=== PATIENT | female | born 1955 | race Caucasian/White ===

== ENCOUNTER → 2017-05-27 10:40 | Outpatient (CLI) | payer OTHER, SELFPAY ==
[2017-05-27 12:36] LABS: AST(SGOT) 19 U/L (15-37); Alanine Aminotransfer ALT/SGPT 40 U/L (13-56); Albumin, Serum 3.7 g/dL (3.2-5.0); Alkaline Phosphatase 109 U/L (45-117); Anion Gap 8 (5-15); BUN 17 mg/dL (7-18); BUN/Creat Ratio 24.6 RATIO (10-20); CPK Total, Creatine Kinase 46 U/L (26-192); Calcium,Total 9.1 mg/dL (8.5-10.1); Chloride 106 mmol/L (98-107); Cholesterol 137 mg/dL (200); Creatinine, Serum 0.69 mg/dL (0.55-1.02); EST Glomerular Filtration Rate 92 mL/min (>60); Est Glom Filt Rate - Afr Amer 111 mL/min (>60); Globulin 3.8 g/dL (2.2-4.2); Glucose 154 mg/dL (74-106); High Density Lipoprotein 47 mg/dL; Potassium 4.1 mmol/L (3.5-5.1); Protein, Total 7.5 g/dL (6.4-8.2); Sodium Level 139 mmol/L (136-145); Triglycerides 278 mg/dL; Very Low Density Lipoprotein 56 mg/dL (5-40)
[2017-05-27 12:42] LABS: Hemoglobin A1c 8.8 % (4.2-6.3)
[2017-05-27 12:57] LABS: Microalbumin,Random Urine 5.5 mg/L (NO RANGE EST.); Microalbumin:Creatinine Ratio 10.1 mg/g CRE (<30 mg/g CRE)
== END ==
PROVIDERS: Family Provider Family Medicine; PCP Family Medicine; Visit Provider Family Medicine
DX: E11.9 Type 2 diabetes mellitus without complications (principal); E78.5 Hyperlipidemia, unspecified; M79.1 Myalgia; Z12.11 Encounter for screening for malignant neoplasm of colon
CPT/HCPCS: 36415; 80053; 80061; 82043; 82274; 82550; 82570; 83036

== ENCOUNTER → 2017-08-05 14:31 | Outpatient (CLI) | payer OTHER, SELFPAY ==
--- NOTE | 2017-08-05 14:31 | DT_ITS ---
This patient was seen during an EMR downtime July 29, 2017 - August 05, 2017. This patient may have a combination of paper and electronic documentation or all paper documentation. All documentation is viewable within the e-chart portion of [facility] for each patient visit.
[2017-08-05 15:17] LABS: Hematocrit 45.1 % (37-47); Hemoglobin 14.5 g/dl (12.0-15.0); Mean Corp Hgb Conc 32.2 g/gl (32-36); Mean Corpuscular Hgb 30.1 pg (27.0-32.0); Mean Corpuscular Volume 93.6 fL (81-99); Mean Platelet Vol. 9.9 fl (6.2-12.0); Platelet Count 235 K/mm3 (150-450); RBC Distribution Width CV 13.3 % (11.6-14.6); RBC Distribution Width SD 45.6 fl (35.1-43.9); Red Blood Count 4.82 M/mm3 (4.2-5.4)
[2017-08-05 15:19] LABS: Scan Indicated on CBC? Y/N NO
[2017-08-05 15:42] LABS: Anion Gap 10 (5-15); BUN 18 mg/dL (7-18); BUN/Creat Ratio 26.7 RATIO (10-20); Calcium,Total 9.5 mg/dL (8.5-10.1); Chloride 105 mmol/L (98-107); Creatinine, Serum 0.67 mg/dL (0.55-1.02); EST Glomerular Filtration Rate 95 mL/min (>60); Est Glom Filt Rate - Afr Amer 115 mL/min (>60); Glucose 106 mg/dL (74-106); Sodium Level 140 mmol/L (136-145)
== END ==
PROVIDERS: Family Provider Family Medicine; PCP Family Medicine; Visit Provider Family Medicine
DX: Z79.899 Other long term (current) drug therapy (principal)
CPT/HCPCS: 36415; 80048; 85027

== ENCOUNTER → 2017-09-09 08:18 | Outpatient (CLI) | payer OTHER, SELFPAY ==
[2017-09-09 09:32] LABS: Hemoglobin A1c 8.9 % (4.2-6.3)
[2017-09-09 09:34] LABS: Thyroid Stim Hormone (TSH) 1.48 uIU/mL (0.358-3.74)
== END ==
PROVIDERS: Family Provider Family Medicine; PCP Family Medicine; Visit Provider Family Medicine
DX: E11.65 Type 2 diabetes mellitus with hyperglycemia (principal); E11.69 Type 2 diabetes mellitus with other specified complication
CPT/HCPCS: 36415; 83036; 84443

== ENCOUNTER → 2018-01-30 12:13 | Outpatient (CLI) | payer OTHER, SELFPAY ==
[2016-10-09 07:57] VITALS: BMI 31.2
[2018-01-30 13:05] LABS: Hemoglobin A1c 9.4 % (4.2-6.3)
[2018-01-30 13:16] LABS: ALB/GLOB Ratio 0.9 RATIO (0.9-2.4); AST(SGOT) 18 U/L (15-37); Alanine Aminotransfer ALT/SGPT 46 U/L (13-56); Albumin, Serum 3.4 g/dL (3.2-5.0); Alkaline Phosphatase 135 U/L (45-117); Anion Gap 11 (5-15); BUN 13 mg/dL (7-18); BUN/Creat Ratio 15.6 RATIO (10-20); Calcium,Total 8.9 mg/dL (8.5-10.1); Chloride 105 mmol/L (98-107); Creatinine, Serum 0.83 mg/dL (0.55-1.02); EST Glomerular Filtration Rate 74 mL/min (>60); Est Glom Filt Rate - Afr Amer 90 mL/min (>60); Globulin 3.8 g/dL (2.2-4.2); Glucose 233 mg/dL (74-106); Protein, Total 7.2 g/dL (6.4-8.2); Sodium Level 140 mmol/L (136-145)
== END ==
PROVIDERS: Family Provider Family Medicine; PCP Family Medicine; Referring Provider Physician Assistant; Visit Provider Physician Assistant
DX: I10 Essential (primary) hypertension (principal); E11.65 Type 2 diabetes mellitus with hyperglycemia; E11.69 Type 2 diabetes mellitus with other specified complication; E78.5 Hyperlipidemia, unspecified
CPT/HCPCS: 36415; 80053; 83036

== ENCOUNTER → 2018-06-17 | Outpatient (CLI) | payer OTHER, SELFPAY ==
[2016-10-09 07:57] VITALS: BMI 31.2
[2018-06-25 17:49] LABS: HPV HC, High Risk Negative (Negative); HPV Reflexed? YES, CHARGE PATIENT
== END | disposition home or self-care (01) ==
LOC: LABSPEC 14:13
PROVIDERS: Visit Provider Obstetrics & Gynecology
DX: Z12.4 Encounter for screening for malignant neoplasm of cervix (principal)
CPT/HCPCS: 87624; 88175; G0145

== ENCOUNTER → 2018-07-07 | Outpatient (CLI) | payer OTHER, SELFPAY ==
[2016-10-09 07:57] VITALS: BMI 31.2
[2018-07-07 10:59] LABS: Hemoglobin A1c 9.1 % (4.2-6.3)
== END | disposition home or self-care (01) ==
PROVIDERS: Family Provider Family Medicine; PCP Family Medicine; Referring Provider Family Medicine; Visit Provider Family Medicine
DX: E11.65 Type 2 diabetes mellitus with hyperglycemia (principal)
CPT/HCPCS: 36415; 83036

== ENCOUNTER → 2018-08-06 | Outpatient (CLI) | payer OTHER, SELFPAY ==
[2016-10-09 07:57] VITALS: BMI 31.2
--- NOTE | 2018-08-06 10:37 | BI_ITS ---
MAMMOGRAPHY - BILATERAL SCREENING REASON FOR EXAM: Female, 62 years old. Routine annual screening examination. PERTINENT HISTORY: Mother with breast cancer. TECHNIQUE: Digital bilateral breast tracee (3D mammographic acquisition) in the CC and MLO projections. 2-D mediolateral oblique (MLO) and craniocaudad (CC) views of both breasts were obtained. CAD: Full Field Digital Mammography with Computer Added Detection was performed. COMPARISON: Comparison is made with prior study dated January 28, 2016 and January 30, 2012. FINDINGS: Breast Composition: The breasts are heterogeneously dense, which may obscure small masses. There are no dominant masses or suspicious calcifications. No other significant abnormalities are identified. There has been no significant change since the prior study. BI/SCREEN MAMM (CAD) W/TRACEE BILAT IMPRESSION: Stable bilateral screening mammogram. Yearly follow-up mammogram recommended. (A) ASSESSMENT CATEGORY: BIRADS Category 1: Negative. A letter regarding these results will be sent to the patient by the facility within 30 days. Approximately 10% of breast cancers are not detected by mammography. A normal mammogram should not delay biopsy of a clinically suspicious abnormality. [id number] Electronically Signed: Kyle Martins, at 12:29 EDT , Service support ,
== END | disposition home or self-care (01) ==
LOC: OPBI 10:32
PROVIDERS: Family Provider Family Medicine; PCP Family Medicine; Referring Provider Obstetrics & Gynecology; Visit Provider Obstetrics & Gynecology
DX: Z12.31 Encounter for screening mammogram for malignant neoplasm of breast (principal)
CPT/HCPCS: 77063; 77067

== ENCOUNTER → 2018-10-13 | Outpatient (CLI) | payer OTHER, SELFPAY ==
[2018-10-13 11:44] LABS: Hemoglobin A1c 9.2 % (4.2-6.3)
== END | disposition home or self-care (01) ==
PROVIDERS: Family Provider Family Medicine; PCP Family Medicine; Referring Provider Family Medicine; Visit Provider Family Medicine
DX: E11.65 Type 2 diabetes mellitus with hyperglycemia (principal)
CPT/HCPCS: 36415; 83036

== ENCOUNTER → 2019-11-12 09:17 | Outpatient (CLI) | payer OTHER, SELFPAY ==
[2016-10-09 07:57] VITALS: BMI 31.2
[2019-11-12 10:07] LABS: Absolute Lymphocyte Count 1.69 X10^3/uL (0.83-4.51); Absolute Neutrophil Count 3.5 X10^3/uL (2.0-7.7); Basophil# 0.03 X10^3/uL; Basophil% 0.5 % (0-1); Eosinophil# 0.33 X10^3/uL; Eosinophils% 5.7 % (0-5); Hematocrit 43.5 % (37-47); Hemoglobin 13.8 g/dL (12.0-15.0); Lymphocyte # 1.69 X10^3/ul (4.0); Mean Corp Hgb Conc 31.7 g/dL (32-36); Mean Corpuscular Hgb 29.4 pg (27.0-32.0); Mean Corpuscular Volume 92.6 fL (81-99); Mean Platelet Vol. 9.7 fl (6.2-12.0); Monocyte# 0.27 X10^3/uL; Monocyte% 4.6 % (0-10); NRBC Flagged by Analyzer 0 % (0-5); Neutrophil # 3.49 X10^3/uL (2.7-7.7); Neutrophil % 59.9 % (47-70); Platelet Count 247 K/mm3 (150-450); RBC Distribution Width CV 12.5 % (11.6-14.6); RBC Distribution Width SD 43.2 fl (35.1-43.9); White Blood Count 5.8 K/mm3 (4.4-11.0)
[2019-11-12 10:25] LABS: Hemoglobin A1c 9.7 % (3.8-5.6)
[2019-11-12 10:41] LABS: ALB/GLOB Ratio 0.9 RATIO (0.9-2.4); AST(SGOT) 14 U/L (15-37); Alanine Aminotransfer ALT/SGPT 30 U/L (13-56); Albumin, Serum 3.4 g/dL (3.2-5.0); Alkaline Phosphatase 102 U/L (45-117); Anion Gap 9 (5-15); BUN 12 mg/dL (7-18); BUN/Creat Ratio 20.3 RATIO (10-20); Calcium,Total 9.1 mg/dL (8.5-10.1); Chloride 106 mmol/L (98-107); Cholesterol 122 mg/dL (200); Creatinine, Serum 0.59 mg/dL (0.55-1.02); EST Glomerular Filtration Rate 109 mL/min (>60); Est Glom Filt Rate - Afr Amer 132 mL/min (>60); Globulin 3.8 g/dL (2.2-4.2); Glucose 142 mg/dL (74-106); High Density Lipoprotein 44 mg/dL; Potassium 3.8 mmol/L (3.5-5.1); Protein, Total 7.2 g/dL (6.4-8.2); Sodium Level 138 mmol/L (136-145); Triglycerides 226 mg/dL; Very Low Density Lipoprotein 45 mg/dL (5-40)
[2019-11-12 12:42] LABS: Microalbumin,Random Urine 5.6 mg/L (NO RANGE EST.); Microalbumin:Creatinine Ratio 14.8 mg/g CRE (<30 mg/g CRE)
== END ==
PROVIDERS: PCP Family Medicine; Referring Provider Family Medicine; Visit Provider Family Medicine
DX: E11.9 Type 2 diabetes mellitus without complications (principal); Z12.11 Encounter for screening for malignant neoplasm of colon
CPT/HCPCS: 36415; 80053; 80061; 82043; 82274; 82570; 83036; 85025

== ENCOUNTER → 2020-02-24 09:49 | Outpatient (CLI) | payer OTHER, SELFPAY ==
--- NOTE | 2020-02-24 09:52 | US_ITS ---
STUDY: THYROID ULTRASOUND REASON FOR EXAM: Female, 64 years old. NODULE TECHNIQUE: Ultrasound evaluation of the thyroid was performed with real-time and static dejesus-scale imaging. COMPARISON: None. FINDINGS: RIGHT LOBE: The right lobe of the thyroid gland measures 5.1 x 2.0 x 1.6 cm. There is a heterogeneous echotexture. Nodule 1:12 x 10 x 6 mm mixed cystic and solid isoechoic wider than tall smoothly marginated nodule with no echogenic foci (TR 2) in the anterior right lobe consistent with an adenoma. Nodule 2:11 x 10 x 6 mm mixed cystic and solid isoechoic wider than tall smoothly marginated nodule with no echogenic foci (TR 2) the posterior right lobe consistent with an adenoma. LEFT LOBE: The left lobe of the thyroid gland measures 4.8 x 1.7 x 1.4 cm. There is a heterogeneous echotexture. Nodule 3:13 x 10 x 9 mm mixed cystic and solid isoechoic wider than tall smoothly marginated nodule with no echogenic foci (TR 2) in the mid left lobe consistent with an adenoma. Nodule 4:7 x 4 x 6 mm solid hypoechoic wider than tall smoothly marginated nodule with no echogenic foci (TR 4) in the mid left lobe consistent with an adenoma. ISTHMUS: The isthmus measures 4 mm thick. Nodule 5:18 x 22 x 9 mm solid hypoechoic wider than tall smoothly marginated nodule with no echogenic foci (TR 4)/ultrasound-guided biopsy is recommended.. The regional lymph nodes are normal. US/Thyroid IMPRESSION: Multinodular thyroid gland with a 22 mm dominant nodule the isthmus for which ultrasound-guided biopsy is recommended. Electronically Signed: Kilo Benavides MD at 15:04 EST Tel , Service support ,
--- NOTE | 2020-02-24 09:52 | BI_ITS ---
MAMMOGRAPHY - BILATERAL SCREENING REASON FOR EXAM: Female, 64 years old. Routine annual screening examination. PERTINENT HISTORY: FAM HX OF MOTHER @ AGE 64 AGAIN @ AGE 80 - NO PREV SURG''S TECHNIQUE: Digital bilateral breast tracee (3D mammographic acquisition) in the CC and MLO projections. 2-D mediolateral oblique (MLO) and craniocaudad (CC) views of both breasts were obtained. CAD: Full Field Digital Mammography with Computer Added Detection was performed. COMPARISON: 08/06/2018 01/28/2016 FINDINGS: Breast Composition: There are scattered areas of fibroglandular density. There are no dominant masses or suspicious calcifications. No other significant abnormalities are identified. BI/SCREEN MAMM (CAD) W/TRACEE BILAT IMPRESSION: Stable bilateral screening mammogram. Yearly follow-up mammogram recommended. (A) ASSESSMENT CATEGORY: BIRADS Category 2: Benign. A letter regarding these results will be sent to the patient by the facility within 30 days. Approximately 10% of breast cancers are not detected by mammography. A normal mammogram should not delay biopsy of a clinically suspicious abnormality. [id number] Electronically Signed: Beto Snyder, at 16:31 EST Tel , Service support ,
--- NOTE | 2020-02-24 10:01 | BD_ITS ---
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 COMPARISON: Comparison is made with prior study dated 01/30/2012. FINDINGS: Lumbar Spine (L1-L4): g/cm2 (1.095) / T-score (-0.6) / Z-score (0.9) Findings are suggestive of normal bone density with a low fracture risk. Left Femur Total: g/cm2 (0.826) / T-score (-1.4) / Z-score (-0.3) Left Femoral Neck: g/cm2 (0.829) / T-score (-1.5) / Z-score (-0.1) Right Femur Total: g/cm2 (0.815) / T-score (-1.5) / Z-score (-0.4) Right Femoral Neck: g/cm2 (0.761) / T-score (-2.0) / Z-score (-0.6) The T-Scores on the most recent prior examination were: Lumbar Spine (L1-L4): There has been worsening of bone density since the previous examination. Left Femur Total: which represents a worsening of 14.9%. Right Femur Total: which represents a worsening of 70%. BD/Dexa Bone Density Study IMPRESSION: The patient is considered osteopenic as outlined below according to World Jose Organization (WHO) criteria with a moderate fracture risk. There has been worsening of bone density since the previous examination. Reference Information: The T-score is the number of standard deviations above or below the standard which is normal for young adults at their peak bone mineral density. The World Health Organization (WHO) interprets the T-scores as follows: Above -1 Normal bone density Between -1 and -2.5 Osteopenia Equal to / or below -2.5 Osteoporosis As a practical clinical guideline, osteopenia may be graded as follows: Mild -1 through -1.5 Moderate -1.6 through -2.0 Severe -2.1 through -2.4 The Z-score is the number of standard deviations above or below age-matched controls. A Z-score of less than -1.5 would be considered abnormal. References: 1. NIH Osteoporosis and Related Bone Diseases www osteo.org 2. International Society for Clinical Densitometry www iscd.org 3. National Osteoporosis Foundation www nof.org Electronically Signed: Kyle Martins, at 10:08 EST , Service support ,
== END ==
PROVIDERS: PCP Family Medicine; Referring Provider Family Medicine; Visit Provider Family Medicine
DX: Z12.31 Encounter for screening mammogram for malignant neoplasm of breast (principal); E04.1 Nontoxic single thyroid nodule; M85.89 Other specified disorders of bone density and structure, multiple sites
CPT/HCPCS: 76536; 77063; 77067; 77080

== ENCOUNTER → 2020-03-17 | Outpatient (CLI) | payer OTHER, SELFPAY ==
--- NOTE | 2020-03-17 07:30 | ASPS_PTH ---
PATIENT: GLORY RAMESH LOC: [facility] U#:[id number] AGE/SX: 64/F ROOM: RE03/17/[address]: Dr. Kevin Pickard MD : [id number] BED: DIS: 03/17/2020 SPEC #: [id number] RECD: 03/17/20 15:05 STATUS: GRETEL RESohail #: [id number] ELAN: 03/17/20 07:[address]: Kevin Pickard DEPT: CYTOLOGY RECD BY: Yuli Treadwell ENTERED: 03/18/20 07:09 SP TYPE: ASPIRATION OTHR DR: Dr. Gabriel Kamara MD Tissues: A - Thyroid gland, NOS B - Thyroid isthmus Procedures: Special Stain Group II Cytology Other HEADER OPERATION: Ultrasound-guided fine needle aspiration left thyroid and isthmus PRE-OP DIAGNOSIS: Multiple thyroid nodules TISSUE SUBMITTED: A - Left thyroid nodule FNA slides x6, B - Isthmus FNA slides x6 DIAGNOSIS CYTOLOGY A. Fine needle aspiration, left thyroid nodule (smears): Adequate for evaluation. Negative, consistent with benign follicular nodule. B. Fine needle aspiration, thyroid isthmus nodule (smears): Adequate for evaluation. Negative, consistent with follicular nodule with cystic change. AM:kristie 03/18/2020 CYTOLOGY STUDY Slides are reviewed. CYTOLOGY GROSS A - Received are six smears labeled with the patient's name and designated per the requisition as left thyroid. Submitted for staining. B - Received are six smears labeled with the patient's name and designated per the requisition as isthmus. Submitted for staining. / kristie 03/17/20 TC:5 CPT: 91138 x2
== END | disposition home or self-care (01) ==
LOC: LABSPEC 15:11
PROVIDERS: PCP Family Medicine; Referring Provider Surgery; Visit Provider Surgery
DX: E04.2 Nontoxic multinodular goiter (principal)
CPT/HCPCS: 88161; 88313

== ENCOUNTER → 2020-03-24 08:53 | Outpatient (CLI) | payer OTHER, SELFPAY ==
[2020-03-28 10:09] LABS: HPV APTIMA, High Risk Negative (Negative)
[2020-03-28 10:10] LABS: HPV Reflexed? YES, CHARGE PATIENT
== END ==
PROVIDERS: PCP Family Medicine; Visit Provider Student in an Organized Health Care Education/Training Program
DX: Z12.4 Encounter for screening for malignant neoplasm of cervix (principal)
CPT/HCPCS: 87624; 88175; G0145

== ENCOUNTER → 2020-03-24 08:57 | Outpatient (CLI) | payer OTHER, SELFPAY ==
[2016-10-09 07:57] VITALS: BMI 31.2
[2020-03-08 13:53] VITALS: BMI 27.3
[2020-03-24 10:17] LABS: Absolute Lymphocyte Count 1.63 X10^3/uL (0.83-4.51); Absolute Neutrophil Count 3.8 X10^3/uL (2.0-7.7); Basophil# 0.04 X10^3/uL; Basophil% 0.7 % (0-1); Eosinophil# 0.17 X10^3/uL; Eosinophils% 2.8 % (0-5); Hematocrit 45.4 % (37-47); Hemoglobin 14.6 g/dL (12.0-15.0); Lymphocyte # 1.63 X10^3/ul (4.0); Mean Corp Hgb Conc 32.2 g/dL (32-36); Mean Corpuscular Hgb 30.2 pg (27.0-32.0); Mean Corpuscular Volume 93.8 fL (81-99); Mean Platelet Vol. 10.1 fl (6.2-12.0); Monocyte# 0.35 X10^3/uL; Monocyte% 5.8 % (0-10); NRBC Flagged by Analyzer 0 % (0-5); Neutrophil # 3.83 X10^3/uL (2.7-7.7); Neutrophil % 63.4 % (47-70); Platelet Count 241 K/mm3 (150-450); RBC Distribution Width CV 12.5 % (11.6-14.6); RBC Distribution Width SD 43.6 fl (35.1-43.9); Red Blood Count 4.84 M/mm3 (4.2-5.4)
[2020-03-24 10:51] LABS: Vitamin D,25 Hydroxy 41.8 ng/mL
[2020-03-24 11:06] LABS: Microalbumin:Creatinine Ratio 19.2 mg/g CRE (<30 mg/g CRE)
[2020-03-24 11:14] LABS: ALB/GLOB Ratio 0.9 RATIO (0.9-2.4); AST(SGOT) 10 U/L (15-37); Alanine Aminotransfer ALT/SGPT 29 U/L (13-56); Albumin, Serum 3.5 g/dL (3.2-5.0); Alkaline Phosphatase 104 U/L (45-117); Anion Gap 9 (5-15); BUN 21 mg/dL (7-18); BUN/Creat Ratio 29.1 RATIO (10-20); Chloride 107 mmol/L (98-107); Cholesterol 137 mg/dL (200); Creatinine, Serum 0.72 mg/dL (0.55-1.02); EST Glomerular Filtration Rate 87 mL/min (>60); Est Glom Filt Rate - Afr Amer 105 mL/min (>60); Glucose 212 mg/dL (74-106); High Density Lipoprotein 54 mg/dL; Potassium 3.5 mmol/L (3.5-5.1); Protein, Total 7.5 g/dL (6.4-8.2); Sodium Level 139 mmol/L (136-145); Thyroid Stim Hormone (TSH) 0.71 uIU/mL (0.358-3.74); Triglycerides 171 mg/dL; Very Low Density Lipoprotein 34 mg/dL (5-40)
== END ==
PROVIDERS: PCP Family Medicine; Referring Provider Family Medicine; Visit Provider Family Medicine
DX: E04.1 Nontoxic single thyroid nodule (principal); E11.9 Type 2 diabetes mellitus without complications; M85.89 Other specified disorders of bone density and structure, multiple sites
CPT/HCPCS: 36415; 80053; 80061; 82043; 82306; 82570; 83036; 84443; 85025

== ENCOUNTER → 2020-11-10 09:13 | Outpatient (CLI) | payer OTHER, SELFPAY | PROVIDERS: PCP Family Medicine; Referring Provider Family Medicine; Visit Provider Family Medicine | DX: E11.9 Type 2 diabetes mellitus without complications (principal); I10 Essential (primary) hypertension | CPT/HCPCS: 36415; 83036 ==

== ENCOUNTER 2021-05-15 10:47 | Outpatient (CLI) | payer OTHER, SELFPAY ==
[2021-05-15 12:12] LABS: Hemoglobin A1c 6.7 % (3.8-5.6)
== END 2021-05-15 23:59 | disposition home or self-care (01) ==
LOC: MTLAB 10:49
PROVIDERS: PCP Family Medicine; Referring Provider Family Medicine; Visit Provider Family Medicine
DX: E11.9 Type 2 diabetes mellitus without complications (principal)
CPT/HCPCS: 36415; 83036

== ENCOUNTER → 2021-06-26 | Outpatient (CLI) | payer OTHER, SELFPAY ==
--- NOTE | 2021-06-26 12:09 | BI_ITS ---
MAMMOGRAPHY - BILATERAL SCREENING REASON FOR EXAM: Female, 65 years old. Routine annual screening examination. PERTINENT HISTORY: Mother with breast cancer. TECHNIQUE: Digital bilateral breast tracee (3D mammographic acquisition) in the CC and MLO projections. 2-D mediolateral oblique (MLO) and craniocaudad (CC) views of both breasts were obtained. CAD: Full Field Digital Mammography with Computer Added Detection was performed. COMPARISON: Comparison is made with prior study dated 02/24/2020 and 08/06/2018. FINDINGS: Breast Composition: The breasts are heterogeneously dense, which may obscure small masses. There are no dominant masses or suspicious calcifications. No other significant abnormalities are identified. There has been no significant change since the prior study. BI/SCRN MAMM (CAD)W/TRACEE BILAT IMPRESSION: Stable bilateral screening mammogram. Yearly follow-up mammogram recommended. (A) ASSESSMENT CATEGORY: BIRADS Category 1: Negative. A letter regarding these results will be sent to the patient by the facility within 30 days. Approximately 10% of breast cancers are not detected by mammography. A normal mammogram should not delay biopsy of a clinically suspicious abnormality. [id number] Electronically Signed: Kyle Martins MD at 12:56 EDT ,
--- NOTE | 2021-06-26 12:37 | US_ITS ---
STUDY: THYROID ULTRASOUND REASON FOR EXAM: Female, 65 years old. compare 2020 thyroid nodules TECHNIQUE: Ultrasound evaluation of the thyroid was performed with real-time and static dejesus-scale imaging. COMPARISON: 03/17/2020 FINDINGS: RIGHT LOBE: The right lobe of the thyroid gland measures 5.2 x 2 x 2.1 cm. There is a heterogeneous echotexture. Stable numerous small nodules throughout the right thyroid lobe, cystic nodule measuring 11 x 9 x 8 mm complex nodule measuring 11 x 11 x 10 mm. LEFT LOBE: The left lobe of the thyroid gland measures 4.2 x 1.6 x 1.6 cm. There is a heterogeneous echotexture. Numerous nodules, largest complex nodule measuring 11 x 10 x 10 mm and largest cystic nodule measuring 8 x 6 x 4 mm. ISTHMUS: The isthmus measures 8 mm. The regional lymph nodes are normal. Heterogeneous/complex nodule in the isthmus measuring 1.8 x 1.5 x 0.7 cm US/Thyroid IMPRESSION: Stable multinodular goiter with a diffuse heterogeneous appearance Electronically Signed: Osvaldo Jay DO at 5:48 EDT ,
== END | disposition home or self-care (01) ==
LOC: OPBI 12:06
PROVIDERS: PCP Family Medicine; Referring Provider Family Medicine; Visit Provider Family Medicine
DX: Z12.31 Encounter for screening mammogram for malignant neoplasm of breast (principal); E04.1 Nontoxic single thyroid nodule
CPT/HCPCS: 76536; 77063; 77067

== ENCOUNTER → 2021-10-25 | Outpatient (CLI) | payer OTHER, SELFPAY ==
[2021-10-25 10:51] LABS: Microalbumin,Random Urine 5.4 mg/L (NO RANGE EST.); Microalbumin:Creatinine Ratio 11.3 mg/g CRE (<30 mg/g CRE)
[2021-10-25 10:55] LABS: Vitamin D,25 Hydroxy 44.6 ng/mL
[2021-10-25 11:07] LABS: ALB/GLOB Ratio 0.9 RATIO (0.9-2.4); AST(SGOT) 16 U/L (15-37); Alanine Aminotransfer ALT/SGPT 33 U/L (13-56); Albumin, Serum 3.4 g/dL (3.2-5.0); Alkaline Phosphatase 101 U/L (45-117); Anion Gap 8 (5-15); BUN 10 mg/dL (7-18); BUN/Creat Ratio 12.7 RATIO (10-20); Calcium,Total 9.3 mg/dL (8.5-10.1); Chloride 106 mmol/L (98-107); Cholesterol 114 mg/dL (200); Creatinine, Serum 0.78 mg/dL (0.55-1.02); EST Glomerular Filtration Rate 78 mL/min (>60); Est Glom Filt Rate - Afr Amer 95 mL/min (>60); Globulin 3.8 g/dL (2.2-4.2); Glucose 178 mg/dL (74-106); High Density Lipoprotein 61 mg/dL; Potassium 3.9 mmol/L (3.5-5.1); Protein, Total 7.2 g/dL (6.4-8.2); Sodium Level 138 mmol/L (136-145); Thyroid Stim Hormone (TSH) 0.56 uIU/mL (0.358-3.74); Triglycerides 158 mg/dL; Very Low Density Lipoprotein 32 mg/dL (5-40)
== END | disposition home or self-care (01) ==
LOC: LAB 10:02
PROVIDERS: PCP Family Medicine; Visit Provider Nurse Practitioner Family
DX: E11.9 Type 2 diabetes mellitus without complications (principal); I10 Essential (primary) hypertension
CPT/HCPCS: 36415; 80053; 80061; 82043; 82306; 82570; 84443

== ENCOUNTER → 2022-07-20 | Outpatient (CLI) | payer OTHER, SELFPAY ==
[2022-07-20 10:33] LABS: Hemoglobin A1c 7.8 % (3.8-5.6)
== END | disposition home or self-care (01) ==
PROVIDERS: PCP Family Medicine; Referring Provider Nurse Practitioner Family; Visit Provider Nurse Practitioner Family
DX: E11.9 Type 2 diabetes mellitus without complications (principal)
CPT/HCPCS: 36415; 83036

== ENCOUNTER → 2022-09-05 | Outpatient (CLI) | payer OTHER, SELFPAY ==
--- NOTE | 2022-09-05 08:45 | BI_ITS ---
MAMMOGRAPHY - BILATERAL SCREENING REASON FOR EXAM: Female, 66 years old. Routine annual screening examination. PERTINENT HISTORY: Mother with breast cancer. TECHNIQUE: Digital bilateral breast tracee (3D mammographic acquisition) in the CC and MLO projections. 2-D mediolateral oblique (MLO) and craniocaudad (CC) views of both breasts were obtained. CAD: Full Field Digital Mammography with Computer Added Detection was performed. COMPARISON: Comparison is made with prior study June 26, 2021 and February 24, 2020 FINDINGS: Breast Composition: The breasts are heterogeneously dense, which may obscure small masses. There are no dominant masses or suspicious calcifications. No other significant abnormalities are identified. There has been no significant change since the prior study. BI/SCRN MAMM (CAD)W/TRACEE BILAT IMPRESSION: Stable bilateral screening mammogram. Yearly follow-up mammogram recommended. (A) ASSESSMENT CATEGORY: BIRADS Category 1: Negative. A letter regarding these results will be sent to the patient by the facility within 30 days. Approximately 10% of breast cancers are not detected by mammography. A normal mammogram should not delay biopsy of a clinically suspicious abnormality. [id number] Electronically Signed: Kyle Martins MD at 9:51 EDT ,
--- NOTE | 2022-09-05 08:55 | BD_ITS ---
STUDY: DUAL ENERGY X-RAY ABSORPTIOMETRY / DXA REASON FOR EXAM: Female, 66 years old. M85.89 TECHNIQUE: Bone Mineral Density (BMD) measurements of lumbar spine and bilateral hips were obtained. COMPARISON: Comparison is made with prior study dated February 24, 2020. FINDINGS: Lumbar Spine (L1-L4): g/cm2 (0.870) / T-score (-1.3) / Z-score (0.4) Findings are suggestive of osteopenia with a low fracture risk. Left Femur Total: g/cm2 (0.710) / T-score (-1.9) / Z-score (-0.6) Left Femoral Neck: g/cm2 (0.608) / T-score (-2.2) / Z-score (-0.6) Right Femur Total: g/cm2 (0.720) / T-score (-1.8) / Z-score (-0.6) Right Femoral Neck: g/cm2 (0.630) / T-score (-2.0) / Z-score (-0.4) The T-Scores on the most recent prior examination were: Lumbar Spine (L1-L4): There has been worsening of bone density since the previous examination. Left Femur Total: which represents a worsening of 7.2%. Right Femur Total: which represents a worsening of 4.5%. BD/Dexa Bone Density Study IMPRESSION: The patient is considered osteopenic as outlined below according to World [place] Organization (WHO) criteria with a high fracture risk. There has been worsening of bone density since the previous examination. Reference Information: The T-score is the number of standard deviations above or below the standard which is normal for young adults at their peak bone mineral density. The World Health Organization (WHO) interprets the T-scores as follows: Above -1 Normal bone density Between -1 and -2.5 Osteopenia Equal to / or below -2.5 Osteoporosis As a practical clinical guideline, osteopenia may be graded as follows: Mild -1 through -1.5 Moderate -1.6 through -2.0 Severe -2.1 through -2.4 The Z-score is the number of standard deviations above or below age-matched controls. A Z-score of less than -1.5 would be considered abnormal. References: 1. NIH Osteoporosis and Related Bone Diseases www osteo.org 2. International Society for Clinical Densitometry www iscd.org 3. National Osteoporosis Foundation www nof.org Electronically Signed: Kyle Martins MD at 15:26 EDT ,
== END | disposition home or self-care (01) ==
LOC: OPBD 08:43
PROVIDERS: PCP Family Medicine; Referring Provider Family Medicine; Visit Provider Family Medicine
DX: Z12.31 Encounter for screening mammogram for malignant neoplasm of breast (principal); M85.89 Other specified disorders of bone density and structure, multiple sites; Z80.3 Family history of malignant neoplasm of breast
CPT/HCPCS: 77063; 77067; 77080

== ENCOUNTER → 2022-09-27 | Outpatient (CLI) | payer OTHER, SELFPAY ==
[2022-09-27 10:29] LABS: Microalbumin,Random Urine < 5.0 mg/L (NO RANGE EST.)
[2022-09-27 10:56] LABS: Thyroid Stim Hormone (TSH) 0.72 uIU/mL (0.358-3.74)
[2022-09-28 04:07] LABS: Thyroid Peroxidase AB < 9 IU/mL (0-34)
== END | disposition home or self-care (01) ==
LOC: LAB 09:30
PROVIDERS: PCP Family Medicine; Referring Provider Internal Medicine Endocrinology, Diabetes & Metabolism; Visit Provider Internal Medicine Endocrinology, Diabetes & Metabolism
DX: E11.9 Type 2 diabetes mellitus without complications (principal); I10 Essential (primary) hypertension; E04.2 Nontoxic multinodular goiter; E78.2 Mixed hyperlipidemia; E55.9 Vitamin D deficiency, unspecified
CPT/HCPCS: 36415; 82043; 82306; 82570; 84443; 86376

== ENCOUNTER → 2023-09-02 | Outpatient (CLI) | payer OTHER, SELFPAY ==
[2023-09-02 12:48] LABS: Vitamin D,25 Hydroxy 46.6 ng/mL
[2023-09-02 12:59] LABS: ALB/GLOB Ratio 0.9 RATIO (0.9-2.4); AST(SGOT) 14 U/L (15-37); Alanine Aminotransfer ALT/SGPT 16 U/L (13-56); Albumin, Serum 3.4 g/dL (3.2-5.0); Alkaline Phosphatase 110 U/L (45-117); Anion Gap 9 (5-15); BUN 15 mg/dL (7-18); BUN/Creat Ratio 23.1 RATIO (10-20); Calcium,Total 9.2 mg/dL (8.5-10.1); Chloride 106 mmol/L (98-107); Cholesterol 86 mg/dL (200); Creatinine, Serum 0.65 mg/dL (0.55-1.02); EST Glomerular Filtration Rate 97 mL/min (>60); Est Glom Filt Rate - Afr Amer 117 mL/min (>60); Globulin 3.9 g/dL (2.2-4.2); Glucose 189 mg/dL (74-106); High Density Lipoprotein 46 mg/dL; Potassium 3.8 mmol/L (3.5-5.1); Protein, Total 7.3 g/dL (6.4-8.2); Sodium Level 137 mmol/L (136-145); Thyroid Stim Hormone (TSH) 0.42 uIU/mL (0.358-3.74); Triglycerides 141 mg/dL; Very Low Density Lipoprotein 28 mg/dL (5-40)
[2023-09-02 13:09] LABS: Microalbumin,Random Urine < 5.0 mg/L (NO RANGE EST.)
[2023-09-02 20:06] LABS: Absolute Lymphocyte Count 1.43 X10^3/uL (0.83-4.51); Absolute Neutrophil Count 5.5 X10^3/uL (2.0-7.7); Basophil# 0.03 X10^3/uL; Basophil% 0.4 % (0-1); Eosinophils% 1.4 % (0-5); Hematocrit 42.5 % (37-47); Hemoglobin 13.2 g/dL (12.0-15.0); Lymphocyte # 1.43 X10^3/ul (0.83-4.51); Lymphocyte % 19.4 % (19-41); Mean Corp Hgb Conc 31.1 g/dL (32-36); Mean Corpuscular Hgb 28.9 pg (27.0-32.0); Mean Platelet Vol. 10.3 fl (6.2-12.0); Monocyte# 0.33 X10^3/uL; Monocyte% 4.5 % (0-10); NRBC Flagged by Analyzer 0 % (0-5); Neutrophil # 5.45 X10^3/uL (2.7-7.7); Platelet Count 241 K/mm3 (150-450); RBC Distribution Width CV 13.2 % (11.6-14.6); Red Blood Count 4.57 M/mm3 (4.2-5.4); White Blood Count 7.4 K/mm3 (4.4-11.0)
== END | disposition home or self-care (01) ==
PROVIDERS: PCP Family Medicine; Referring Provider Internal Medicine Endocrinology, Diabetes & Metabolism; Visit Provider Internal Medicine Endocrinology, Diabetes & Metabolism
DX: E04.1 Nontoxic single thyroid nodule (principal); E11.9 Type 2 diabetes mellitus without complications
CPT/HCPCS: 36415; 80053; 80061; 82043; 82306; 82570; 84443; 85025

== ENCOUNTER → 2023-10-10 | Outpatient (CLI) | payer OTHER, SELFPAY ==
--- NOTE | 2023-10-10 10:24 | RAD_ITS ---
STUDY: X-RAY - LUMBAR SPINE REASON FOR EXAM: Female, 67 years old. Back pain. TECHNIQUE: 4 view(s) of the lumbar spine were obtained. COMPARISON: November 17, 2010 FINDINGS: Stable osteopenia. Normal lumbar lordosis. No scoliosis. 9 mm of anterolisthesis of L3 on L4 which is increased since the prior study. Diffuse moderate lower thoracic and lumbosacral facet sclerosis. Intervertebral disc space narrowing at L1-2, L2-3, L3-4, L4-5 and L5-S1. Most marked intervertebral disc space narrowing osteophytes at L3-4 and L4-5, all progressed since the prior study. Incidentally noted is moderate to severe arthrosis of both hips. Phleboliths and minimal vascular calcification. RAD/L/S Spine Min 4 Views IMPRESSION: Osteopenia, moderate lower thoracic and moderate to marked lower lumbosacral spondylosis. Moderate to marked arthrosis of both hips. Electronically Signed: Demario Iyer MD at 11:06 EDT ,
--- NOTE | 2023-10-10 10:24 | RAD_ITS ---
INDICATION: Pain. EXAMINATION/TECHNIQUE: X-RAY - XR Hips Bilateral with Pelvis when performed; 6 Views COMPARISON: No relevant prior comparison study available. FINDINGS: PELVIC BONES: No displaced fracture, destructive or sclerotic lesions. Note that overlapping bowel shadows may however obscure fine detail. Sacroiliac joints are unremarkable. No widening of the pubic symphysis. HIPS: There is severe degenerative arthrosis of the hip joints bilaterally with [id number], marginal osteophyte formation, and subchondral sclerosis/cyst formation. No displaced fracture seen. SOFT TISSUES: There are multiple calcified phleboliths in the pelvis. No soft tissue swelling or gas. RAD/Hips B/L min 2 views w/ Pelvis IMPRESSION: Severe degenerative arthrosis of the hip joints bilaterally. No evidence of displaced pelvic or hip fracture. Electronically Signed: Andres Venegas MD at 10:57 EDT ,
== END | disposition home or self-care (01) ==
PROVIDERS: PCP Family Medicine; Referring Provider Physician Assistant Surgical; Visit Provider Physician Assistant Surgical
DX: M25.551 Pain in right hip (principal); M25.552 Pain in left hip; S39.012A Strain of muscle, fascia and tendon of lower back, initial encounter
CPT/HCPCS: 72110; 73521

== ENCOUNTER → 2023-12-03 | Outpatient (CLI) | payer OTHER, SELFPAY ==
[2023-12-03 15:57] LABS: Hemoglobin A1c 7.1 % (3.8-5.6)
== END | disposition home or self-care (01) ==
LOC: MTLAB 12:45
PROVIDERS: PCP Family Medicine; Referring Provider Emergency Medicine; Visit Provider Emergency Medicine
DX: Z01.812 Encounter for preprocedural laboratory examination (principal); E11.9 Type 2 diabetes mellitus without complications
CPT/HCPCS: 36415; 83036

== ENCOUNTER 2024-03-09 12:30 | Outpatient (RCR) | payer OTHER, SELFPAY ==
--- NOTE | 2024-01-27 15:56 | HP.PTEVAL_ITS ---
Patient's Visit Information Visit Information Visit Information: GLORY RAMESH is a 68 year old F referred to Physical Therapy by Dr. Gabriel Kamara MD with a diagnosis of R hip OA s/p ADI anterior approach 12/27/23. Date of Evaluation: 01/27/24 Physical Therapist: PERI JacobsT, OCS, CSCS Visit Plan Frequency: 2x /Week Duration: 4-6 Weeks Plan: 2x/week for 4-6 weeks for IE: HEP reviewed seated adn supine ex and need to move R LE and use it and take care of skin under fat flap in R anterior hip, also on anterior approach precautions exitting bed and how to work on getting hands down to foot for socks and ADLs In clinic: standing Hip strength to HEP with pics, giat and stair training with minimal to no AD, work on confidence with R LE movement, scar massage as needed adn R quad stretching to HEP, ice as needed. Subjective Subjective: R ADI 4 weeks ago early December. Needs L one done. L meniscal repair. Had R hip pain groin. Had home health for 3 weeks and doing HEP of standing movements and lying exercises. Pain over weekend is more of an ache and 2/10. Hurts more if does too much. Sleep is interrupted every 3 hours due to hip adn sleeping on back. Using cane to get around, walker if weather is bad. N AD prior to surgery but hobbled. 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 Basic ADLs: dresses all except socks which she needs help due to limitations. Bathroom I, shower with help into stall and then sits. 2-3 inch step Doing dishes and cooking but limiting mobility Hobbies: sewing: hard with R foot on pedal. Not driving yet. No falls Couple steps with two rails to enter and nno problem with R Pain R hip lateral: Pain Intensity (Out of 10): 0 Pain Intensity Range: 0 and 2 Objective Objective: R Incision is anterior and healed proximally but distally under skin flap is still slightly open but no signs of redness heat or infection. Educated her to keep incision clean and dry even under flap. Pt is very hesitant to use R LE, slow to move it, it is not overly painful but she is hesitant and has been told not to cross legs, bend forward and use pillow between knee when rolling despite the anterior incision, i reeducate her today on ext rotation abd extension precaution and encourage her to move the hip otherwise. Walking with cane in L UE with R trendelenberg slow with short L step but mod I. Can walk without AD slow and more pronounced trendelenberg but I. FGA taken without cane today. Trasnfers chair and bed I but slow to move R LE. SLR able but doesn't have the confidence to do it until shown. Full knee and ankle ROM R, hip ROM hesitant but PROM is 90 flexion, 20 abduction, 0 ext. reflexes 2/3 patella adn achilles Sensation LE WNL to gross light touch B LE. strength hip flexion 7# and hip ext 8# Balance/Special Test Scores Lower Extremity Functional Score: 16 TUG Test Time Seconds: 16 Goals Goal 1:: Sleep 6 hours without waking Goal Time Frame: 4-6 Weeks Goal 2:: I appropriate HEP for strength adn mobility Goal Time Frame: 4-6 Weeks Goal 3:: walk without AD community safely and TUG <10 sec Goal Time Frame: 4-6 Weeks Goal 4:: steps reciprocally with one rail. Goal Time Frame: 4-6 Weeks Goal 5:: LEFS 45 Goal Time Frame: 4-6 Weeks Goal 6:: Pt feel back to 90% activity including work, in/out shower herself, and donning socks. Goal Time Frame: 4-6 Weeks Rehabilitation Potential Physical Therapy Diagnosis: R hip hesitation pain, weakness and lack of movement limiting mobility Rehabilitation Potential: Good Anticipated Interventions Patient/Client Instruction: Educate patient on: Condition, Plan of Care and Risk Factors For the Purpose of:: To decrease pain, To increase ROM, To improve nutrient delivery to tissue, To increase tolerance to activity/condition/position and To improve gait and locomotor functions Therapeutic Exercise to Include: Strength training, Postural training, Flexibilty training, Passive ROM and Active ROM For the Purpose of:: To decrease pain, To increase ROM, To improve nutrient delivery to tissue, To improve muscle performance and motor function, To increase tolerance to activity/condition/position, To improve ability of physical actions for home/community/work/leisure and To increase flexibility/ROM Manual Therapy Techniques to Include: Mobilization, Passive ROM and Soft tissue mobilization For the Purpose of:: To decrease pain, To increase ROM, To improve nutrient delivery to tissue, To improve muscle performance and motor function, To increase tolerance to activity/condition/position and To improve gait and locomotor functions Cryotherapy (ice pack, ice massage): Yes For the Purpose of:: To increase ROM and To improve nutrient delivery to tissue Text: Thank you for the opportunity to evaluate your patient. For Medicare and Medicare HMO plans, please review the plan of care and approve it. It will need to be FAXED BACK to us at [phone] for Medicare purposes. For Medicare only, by signing this I certify the plan of care. Please let me know if there are questions or concerns regarding this plan of care. Physician Signature: Date:
--- NOTE | 2024-02-27 10:43 | HP.PTREVAL ---
Re-Evaluation Intro: Dr. Gabriel Kamara MD, It has been my pleasure to treat GLORY RAMESH over the last 9 visits for R hip OA s/p ADI anterior approach 12/27/23. Please see the progress note below for an update on the physical therapy plan of care! Subjective Subjective: Pt. reports overall doing well. Pt. reports being 60% better overall. Pt. reports that she is still having issues with bending to put her shoes and socks on. She is walking better, but is limited with her L hip. Pt. overall pleased thus far. Objective Objective/Function: STAIRS: Pt. is able to complete with step to pattern with B HR. Pt. did not feel confident with reciprocal pattern. SHe was able to do with VCing, but still showed functional weakness in her R LE. She is also limited with her L due to need for replacement there as well. TU.9sec ROM: PROM: flexion 95deg mild increase NW, abd 45deg NE, ext 0deg mild increase NW, ER/IR not tested. Tightness noted in HS as well.. She is still very hesitant to bend forward, making putting her shoes and socks on very difficult. GAIT: Pt. probably requires use of SPC to off load LLE at this point in time, rather than the R secondary to L hip pain. Overall she is doing well, but would benefit from further PT to get a little bit stronger and better mobility prior to going back to work. Goals are still appropriate at this point in time. Cont. to wean from AD, build BLE strength and progress stability with stairs. Add in exercises to work on him flexion in order to become more comfortable with getting sock and shoes on I. Plan Plan Plan: Cont. to wean from AD, build BLE strength and progress stability with stairs. Add in exercises to work on him flexion in order to become more comfortable with getting sock and shoes on I. Balance/Gait/Functional tests Balance/Special Test Scores Lower Extremity Functional Score: 36 TUG Test Time Seconds: 13.9 Tug Test: <20 sec.=mostly independent 30 Second Chair Rise Test Seconds: 11 Goals Goals Goal 1:: Sleep 6 hours without waking Goal Time Frame: 4-6 Weeks Goal Progress: Progressing Goal 2:: I appropriate HEP for strength and mobility Goal Time Frame: 4-6 Weeks Goal Progress: Progressing Goal 3:: walk without AD community safely and TUG <10 sec Goal Time Frame: 4-6 Weeks Goal Progress: Progressing Goal 4:: steps reciprocally with one rail. Goal Time Frame: 4-6 Weeks Goal Progress: Progressing Goal 5:: LEFS 45 Goal Time Frame: 4-6 Weeks Goal Progress: Progressing Goal 6:: Pt feel back to 90% activity including work, in/out shower herself, and donning socks. Goal Time Frame: 4-6 Weeks Goal Progress: Progressing Anticipated Interventions Anticipated Interventions Patient/Client Instruction: Educate patient on: Condition, Plan of Care and Risk Factors For the Purpose of:: To decrease pain, To increase ROM, To improve nutrient delivery to tissue, To increase tolerance to activity/condition/position and To improve gait and locomotor functions Therapeutic Exercise to Include: Strength training, Postural training, Flexibilty training, Passive ROM and Active ROM For the Purpose of:: To decrease pain, To increase ROM, To improve nutrient delivery to tissue, To improve muscle performance and motor function, To increase tolerance to activity/condition/position, To improve ability of physical actions for home/community/work/leisure and To increase flexibility/ROM Manual Therapy Techniques to Include: Mobilization, Passive ROM and Soft tissue mobilization For the Purpose of:: To decrease pain, To increase ROM, To improve nutrient delivery to tissue, To improve muscle performance and motor function, To increase tolerance to activity/condition/position and To improve gait and locomotor functions Cryotherapy (ice pack, ice massage): Yes For the Purpose of:: To increase ROM and To improve nutrient delivery to tissue Re-Evaluation Ending Re-evaluation ending: Please do not hesitate to contact me at [phone] by phone or if you have questions or concerns regarding this new plan of care! Sincerely, Eldon Agee DPT
--- NOTE | 2024-06-02 15:23 | HP.PT.NRP ---
Patient Information Patient Information: GLORY RAMESH was seen in my office for initial evaluation on 01/27/24. The following Plan of Care was established for this patient: POC Established Initial Frequency: 2x /Week Initial Duration: 4-6 Weeks Anticipated Interventions Patient/Client Instruction: Educate patient on: Condition, Plan of Care and Risk Factors For the Purpose of:: To decrease pain, To increase ROM, To improve nutrient delivery to tissue, To increase tolerance to activity/condition/position and To improve gait and locomotor functions Therapeutic Exercise to Include: Strength training, Postural training, Flexibilty training, Passive ROM and Active ROM For the Purpose of:: To decrease pain, To increase ROM, To improve nutrient delivery to tissue, To improve muscle performance and motor function, To increase tolerance to activity/condition/position, To improve ability of physical actions for home/community/work/leisure and To increase flexibility/ROM Manual Therapy Techniques to Include: Mobilization, Passive ROM and Soft tissue mobilization For the Purpose of:: To decrease pain, To increase ROM, To improve nutrient delivery to tissue, To improve muscle performance and motor function, To increase tolerance to activity/condition/position and To improve gait and locomotor functions Cryotherapy (ice pack, ice massage): Yes For the Purpose of:: To increase ROM and To improve nutrient delivery to tissue Last Seen Last Seen: This patient was last seen in our office 03/09/24. Pertinent comments regarding their Physical therapy will appear below: Pt seen 12 visits of POC but cancelled last visit and official recheck. At this point, it has been over 2 months and i will discontinue due to nonattendance. At this point I will be discontinuing this patient from physical therapy. I would be happy to see this patient again in the future if found appropriate by the physician. Thank you! Amos Mills, DPT, OCS, CSCS Balance/Gait/Functional tests Balance/Special Test Scores Lower Extremity Functional Score: 36 TUG Test Time Seconds: 13.9 Tug Test: <20 sec.=mostly independent 30 Second Chair Rise Test Seconds: 11
== END 2024-03-09 19:00 | disposition home or self-care (01) ==
LOC: PT 12:30
PROVIDERS: PCP Family Medicine; Referring Provider Family Medicine; Visit Provider Family Medicine
DX: M16.0 Bilateral primary osteoarthritis of hip (principal)
CPT/HCPCS: 97110; 97161; 97530

== ENCOUNTER → 2024-03-26 | Outpatient (CLI) | payer OTHER, SELFPAY ==
[2024-03-27 13:49] LABS: Hemoglobin A1c 7.5 % (3.8-5.6)
== END | disposition home or self-care (01) ==
LOC: MTLAB 12:34
PROVIDERS: PCP Family Medicine; Referring Provider Orthopaedic Surgery; Visit Provider Orthopaedic Surgery
DX: Z96.641 Presence of right artificial hip joint (principal); M16.12 Unilateral primary osteoarthritis, left hip
CPT/HCPCS: 36415; 83036

== ENCOUNTER → 2024-05-08 | Outpatient (CLI) | payer MEDICARE, OTHER, SELFPAY ==
--- NOTE | 2024-05-08 14:45 | BI_ITS ---
PROCEDURE: SCRN MAMM (CAD)W/TRACEE BILAT REASON FOR EXAM: F, Age 68 y/o, presents for annual. Family history of breast cancer in her mother. TECHNIQUE: Bilateral screening digital breast tomosynthesis with 2D and 3D images. Computer aided detection. COMPARISON: 09/05/2022, 06/26/2021 FINDINGS: The breasts are heterogeneously dense which may obscure small masses. The mammogram demonstrates that the patient has dense breasts. Supplemental screening with whole breast ultrasound or MRI may be considered for further evaluation. No suspicious masses, areas of developing architectural distortion, or suspicious calcifications. BI/SCRN MAMM (CAD)W/TRACEE BILAT IMPRESSION: There is no mammographic evidence of malignancy. BI-RADS 1: NEGATIVE. RECOMMEND ANNUAL MAMMOGRAPHIC SCREENING. Follow-up code: Routine Follow-up The patient will be notified of the results by letter. Reading Location: [id number]
--- NOTE | 2024-05-08 15:00 | US_ITS ---
PROCEDURE: THYROID (USTHY), 05/08/2024 REASON FOR EXAM: COMPARE SIZE 2021 TECHNIQUE: Grayscale and color Doppler imaging of the thyroid was performed. COMPARISON: 06/26/2021; only images are available for review, the report is not available at the time of dictation. FINDINGS: Right lobe measures 5.3 x 2.0 x 1.5cm. Mildly heterogeneous homogeneous background echotexture. No abnormal vascularity. Nodules as below: *Upper pole, 10 x 7 x 6 mm, solid, hypoechoic, TI-RADS 4. Unclear correlate previously. *Midgland, 12 x 11 x 8 mm, mixed cystic and solid, isoechoic solid components, TI-RADS 2. *Midgland, 11 x 10 x 7 mm, mostly solid, mildly hypoechoic, TI-RADS 4. Possible correlate previously measuring 11 x 10 x 11 mm. *Lower pole, 6 x 5 x 7 mm, solid, isoechoic, ill-defined margins, tie rads 3. No clear correlate previously. *Additional smaller nodules and cysts. Left lobe measures 4.6 x 1.8 x 1.3 cm. Mildly heterogeneous homogeneous background echotexture. No abnormal vascularity. Nodules as below: *Upper pole, 7 x 6 x 5 mm, mixed cystic and solid, hypoechoic solid components, TI-RADS 3. Possible correlate previously, 7 x 4 x 5 mm. *Upper pole, 14 x 9 x 8 mm, mostly solid, isoechoic, TI-RADS 3. Possible correlate previously, 11 x 10 x 10 mm. *Midgland, 7 x 6 x 4 mm, cystic, not suspicious. *Lower pole, 5 x 5 x 4 mm, solid, hypoechoic, TI-RADS 4. Probably corresponding to a nodule previously measuring 6 x 8 x 4 mm. *Additional smaller nodules and cysts. Isthmus measures 3 mm in thickness. Nodules as below: *Left isthmus, 18 x 13 x 8 mm, solid, hypoechoic, TI-RADS 4. Previously 15 x 18 x 7 mm. US/Thyroid IMPRESSION: 1. Assessment is TI-RADS 4. A single 18 mm TI-RADS 4 nodule in the isthmus yani ts criteria for FNA which is recommended per the below. An additional 11 mm TI-RADS 4 nodule on the right meets criteria for fo llow-up per the below. 2. Normal size gland with essentially unremarkable background echotexture. No abnormal vascularity. Management recommendations for TI-RADS 2 findings: Not Suspicious: No FNA. Clin cial follow-up recommended. Management recommendations for TI-RADS 3 findings: FNA if = 2.5 cm; Follow if = 1.5 cm at 1, 3, and 5 years. Management recommendations for TI-RADS 4 findings: FNA if = 1.5 cm; Follow if = 1 cm at 1, 2, 3, and 5 years. Enlargment is defined as ?20% increase in at least two nodule dimensions, with a minimal increase of 2 mm or ?50% or greater increase in volume. Recommendations per ACR Thyroid Imaging, Reporting and Data System (TI-RADS): Floyd solorio Paper of the ACR TI-RADS Committee, 2017 ([email or web address]) Reading Location: [id number]
== END | disposition home or self-care (01) ==
PROVIDERS: PCP Family Medicine; Referring Provider Internal Medicine Endocrinology, Diabetes & Metabolism; Visit Provider Internal Medicine Endocrinology, Diabetes & Metabolism
DX: Z12.31 Encounter for screening mammogram for malignant neoplasm of breast (principal); Z80.3 Family history of malignant neoplasm of breast
CPT/HCPCS: 76536; 77063; 77067

== ENCOUNTER → 2024-06-08 | Outpatient (CLI) | payer MEDICARE, OTHER, SELFPAY ==
[2024-06-08 12:54] LABS: Hemoglobin A1c 7.8 % (<=5.6)
== END | disposition home or self-care (01) ==
LOC: MTLAB 10:45
PROVIDERS: PCP Family Medicine; Referring Provider Internal Medicine Endocrinology, Diabetes & Metabolism; Visit Provider Internal Medicine Endocrinology, Diabetes & Metabolism
DX: E11.65 Type 2 diabetes mellitus with hyperglycemia (principal); I10 Essential (primary) hypertension
CPT/HCPCS: 36415; 83036

== ENCOUNTER → 2024-09-01 | Outpatient (CLI) | payer MEDICARE, OTHER, SELFPAY ==
[2024-09-01 17:42] LABS: AST(SGOT) 15 U/L (<=31); Alanine Aminotransfer ALT/SGPT 17 U/L (<=34); Albumin, Serum 4.1 g/dL (3.4-4.8); Alkaline Phosphatase 140 U/L (35-104); Anion Gap 14 (5-15); BUN 16 mg/dL (4-19); BUN/Creat Ratio 26.8 RATIO (10-20); Calcium,Total 9.4 mg/dL (7.6-11.0); Carbon Dioxide 20.0 mmol/L (21.0-32.0); Chloride 103 mmol/L (98-108); Cholesterol 144 mg/dL (<=200); Globulin 3.2 g/dL (2.2-4.2); Glucose 131 mg/dL (70-99); Low Density Lipoprotein Calc. 56 mg/dL; Potassium 4.5 mmol/L (3.3-5.1); Triglycerides 160 mg/dL; Very Low Density Lipoprotein 32 mg/dL (5-40); Vitamin D,25 Hydroxy 40.2 ng/mL (30-100); cholesterol:hdl ratio screen 2.59
== END | disposition home or self-care (01) ==
LOC: MTLAB 10:49
PROVIDERS: PCP Family Medicine; Referring Provider Internal Medicine Endocrinology, Diabetes & Metabolism; Visit Provider Internal Medicine Endocrinology, Diabetes & Metabolism
DX: E55.9 Vitamin D deficiency, unspecified (principal); E11.65 Type 2 diabetes mellitus with hyperglycemia; E03.9 Hypothyroidism, unspecified; M85.89 Other specified disorders of bone density and structure, multiple sites; I10 Essential (primary) hypertension; E78.2 Mixed hyperlipidemia
CPT/HCPCS: 36415; 80053; 80061; 82306; 83036

== ENCOUNTER 2024-09-18 10:30 | Outpatient (RCR) | payer MEDICARE, OTHER, SELFPAY ==
--- NOTE | 2024-07-08 17:12 | HP.PTEVAL_ITS ---
Patient's Visit Information Visit Information Visit Information: GLORY RAMESH is a 68 year old F referred to Physical Therapy by Dr. Robin Gilman MD with a diagnosis of S/P L THR 06/09/24. Date of Evaluation: 07/06/24 Physical Therapist: Myrna Hannon PT, Cert MDT Visit Plan Frequency: 2-3x /Week Duration: 4-6 Weeks Plan: GAIT TRAINING ON LEVEL SURFACES AND UP AND DOWN STEPS WITH LEAST AD. WORK ON R QUAD FLEXIBILITY FOR IMPROVED STRIDE, HIP EXTENSION AND KNEE FLEXION WITH SOFT TISSUE WORK/ROLL OUT NEEDED. LLE STRENGTH AND BALANCE TRAINING. HEP PROGRESSION. PATIENT DOING WELL WITH CURRENT HEP AND HAS HAD HOME HEALTH PRIOR TO THIS EVAL. Subjective Subjective: Work/Leisure: RETIRED Present symptoms: L HIP MILD PAIN AND STIFFNESS Present since: CHRONIC Pain Scale: WORST 2/10, LEAST 0/10 Currently: 0/10 Incision: DENIES ANY TROUBLE WITH INCISION - SCABBED OVER Is it getting better, worse or staying the same: IMPROVING Commenced as a result of: ARTHRITIS Worse: IN/OUT OF BED, AFTER EX'S Better: ICE, TYLONOL OCCASSIONALLY Disturbed sleep: NO Previous history/Previous treatment: PT Treatment this episode: DOS 06/09/24 (4 WKS PO TOMORROW). HOME HEALTH X 3 WKS. Gait: ST CANE AT ALL TIMES EXCEPT NIGHT. USING WALKER AT NIGHT FOR SAFETY AND MORE IMBALANCE Steps: 6 STEPS IN/OUT OF HOUSE W/2 HR'S - MANAGING GOOD ONE STEP AT A TIME WITH ONE HR AND CANE PMH/Recent major surgery: NIDDM, HARD OF HEARING L EAR, S/P R THR DEC 2023 Objective Objective: GAIT: THIS PATIENT AMBULATES INDEP'LY INTO PT TODAY WITH A ST CANE, DECREASED CADANCE AND A VERY MILD LIMP ON THE LLE. NO LOB. WOMAC score: 19/[address] CANE INDEP'LY. Girth L Patella 41.5 cm Girth 6 inch suprapatellar 51 cm L knee flexion AROM: 105 degrees L hip flexion AROM: 60 degrees in standing. 65 deg PROM in lying. L hip abduction AROM: 30 degrees in standing. Left LE strength hip flexion 5.0 LBS, R 7.7 LBS, L abduction 9.0 LBS, R 15 LBS, knee flexion L 4/5, knee extension L 4/5, ankle DF L 4/5 Right LE strength: knee flexion 5/5, knee extension 5/5, ankle DF 5/5, ankle PF 5/5 Sensory deficit: L LE LIGHT TOUCH SENSATION GROSSLY INTACT Palpation: L LE HIP INCISION LOOK GOOD WITHOUT ANY SIGNS OF INFECTION. TREATMENT: HEP CHECK - SINK EX'S Balance/Special Test Scores WOMAC Total Score: 19 WOMAC Percentatge: 79.3500 Goals Goal 1:: DECREASE C/O L HIP PAIN WITH NORMAL ADL'S 0-210 Goal Time Frame: 6-8 Weeks Goal 2:: PATIENT WILL HAVE L HIP FUNCTIONAL ROM SYMMETRICAL WITH R HIP Goal Time Frame: 4-6 Weeks Goal 3:: PATIENT WILL HAVE L LE STRENGTH WITHING 80% OF R LE Goal Time Frame: 4-6 Weeks Goal 4:: PATIENT WILL COMPLETE TUG IN < 10 SECS WITHOUT AD TO DEMONSTRATE IMPROVED GAIT STABILITY Goal Time Frame: 4-6 Weeks Goal 5:: PATIENT WILL BE ABLE TO ASCEND AND DESCEND STEPS RECIPROCALLY WITH ONE HR WITHOUT LIMITATION Goal Time Frame: 6-8 Weeks Rehabilitation Potential Physical Therapy Diagnosis: LLE WEAKNESS AND STIFFNESS WITH IMPAIRED GAIT ON LEVEL SURFACES AND UP AND DOWN STEPS. Rehabilitation Potential: Excellent Anticipated Interventions Patient/Client Instruction: Educate patient on: Condition, Plan of Care and Risk Factors For the Purpose of:: To improve self management Therapeutic Exercise to Include: Strength training, Flexibilty training and Gait and locomotor training For the Purpose of:: To decrease pain, To increase ROM, To improve muscle performance and motor function, To increase tolerance to activity/condition/position, To improve ability of physical actions for ho me/community/work/leisure, To improve gait and locomotor functions, To decrease soft tissue restriction, To increase flexibility/ROM and To improve self management Cryotherapy (ice pack, ice massage): Yes For the Purpose of:: To decrease pain and To decrease swelling/inflammation Text: Thank you for the opportunity to evaluate your patient. For Medicare and Medicare HMO plans, please review the plan of care and approve it. It will need to be FAXED BACK to us at [phone] for Medicare purposes. For Medicare only, by signing this I certify the plan of care. Please let me know if there are questions or concerns regarding this plan of care. Physician Signature: Date:
--- NOTE | 2024-08-13 14:39 | HP.PTREVAL ---
Re-Evaluation Intro: Dr. Robin Gilman MD, It has been my pleasure to treat GLORY RAMESH over the last 12 visits for S/P L THR 06/09/24. Please see the progress note below for an update on the physical therapy plan of care! Subjective Subjective: PATIENT REPORTS SHE HAS COME A LONG WAY AND IS HAPPY WITH HER PROGRESS. SHE STATES THIS RECOVERY HAS BEEN A LOT EASIER THAN THE OTHER ONE BECAUSE SHE KNEW WHAT TO EXPECT. SHE REPORTS HER R HIP HAS STARTED HURTING SOME AND SHE RELATES IT TO LAYING ON THAT SIDE AND WALKING ON MORE EVEN HIPS NOW. R HIP PAIN IS RANGING 0-2-3/10. SHE DENIES L HIP PAIN AT ALL NOW. SHE STATES SHE KNOW SHE STILL NEEDS TO BE CAREFUL WITH THE L HIP SINCE SHE IS JUST 8 WEEKS PO. Objective Objective/Function: PATIENT WAS SEEN TODAY FOR RE-ASSESSMENT OF PROGRESS TOWARD THE SET PT GOALS AND THE NEED FOR FURTHER PHYSICAL THERAPY VS READINESS FOR DISCHARGE. THIS PATIENT IS MAKING GREAT PROGRESS WITH PT BUT SHE HAS RECENTLY ALSO HAD HER OTHER HIP REPLACED AND IS HAVING SOME PAIN IN IT. SHE IS REQUESTING AQUATIC THERAPY AND THIS PT IS AGREEABLE. UPON EXAM TODAY: GAIT: THIS PATIENT AMBULATES INDEP'LY INTO PT TODAY WITHOUT AD WITH GOOD CADANCE BUT SHORT RADHA STRIDE LENGTH. NO LOB. STEPS: RECIP WITH ONE HR. INDEP TRANSFERS SIT TO STAND WITHOUT UE ASSIST. WOMAC score: 15/96 TU.36 SEC INDEP'LY WITHOUT AD BUT WITH VERY SHORT RADHA STRIDE LENGTH. L knee flexion AROM: 129 degrees L hip flexion AROM: 81 degrees in standing. 90 deg PROM in lying. L hip abduction AROM: 37 degrees in standing. Left LE strength hip flexion 13.1 LBS, R 16.2 LBS, L abduction 17.9 LBS, R 23.5 LBS, knee flexion L 4/5, knee extension L 4/5, ankle DF L 5/5 Right LE strength: knee flexion 5/5, knee extension 5/5, ankle DF 5/5, ankle PF 5/5 Sensory deficit: L LE LIGHT TOUCH SENSATION GROSSLY INTACT Palpation: L LE HIP INCISIONS ARE WELL KNITTED TOGETHER WITHOUT ANY SIGNS OF OPEN AREAS. Plan Plan Plan: CONTINUE PT WITH AQUATIC THERAPY (IF APPROVED BY DR. GILMAN), 2X'S A WK X 4-6 WKS FOR: GAIT TRAINING ON LEVEL SURFACES AND UP AND DOWN STEPS, WORK ON R QUAD FLEXIBILITY FOR IMPROVED STRIDE, HIP EXTENSION AND KNEE FLEXION WITH STRETCHING. LLE STRENGTH AND BALANCE TRAINING. HEP PROGRESSION. *PATIENT IS NON-SWIMMER BUT REQUESTED AQUATIC THERAPY* Balance/Gait/Functional tests Balance/Special Test Scores WOMAC Total Score: 15 WOMAC Percentage: 84.3800 Goals Goals Goal 1:: DECREASE C/O L HIP PAIN WITH NORMAL ADL'S 0-2/10 Goal Time Frame: 6-8 Weeks Goal Progress: Progressing Goal 2:: PATIENT WILL HAVE L HIP FUNCTIONAL ROM SYMMETRICAL WITH R HIP Goal Time Frame: 4-6 Weeks Goal Progress: Progressing Goal 3:: PATIENT WILL HAVE L LE STRENGTH WITHING 80% OF R LE Goal Time Frame: 4-6 Weeks Goal Progress: Progressing Goal 4:: PATIENT WILL COMPLETE TUG IN < 10 SECS WITHOUT AD TO DEMONSTRATE IMPROVED GAIT STABILITY Goal Time Frame: 4-6 Weeks Goal Progress: Goal Met Goal 5:: PATIENT WILL BE ABLE TO ASCEND AND DESCEND STEPS RECIPROCALLY WITH ONE HR WITHOUT LIMITATION Goal Time Frame: 6-8 Weeks Goal Progress: Progressing Anticipated Interventions Anticipated Interventions Patient/Client Instruction: Educate patient on: Condition, Plan of Care and Risk Factors For the Purpose of:: To improve self management Therapeutic Exercise to Include: Strength training, Flexibilty training and Gait and locomotor training For the Purpose of:: To decrease pain, To increase ROM, To improve muscle performance and motor function, To increase tolerance to activity/condition/position, To improve ability of physical actions for home/community/work/leisure, To improve gait and locomotor functions, To decrease soft tissue restriction, To increase flexibility/ROM and To improve self management Cryotherapy (ice pack, ice massage): Yes For the Purpose of:: To decrease pain and To decrease swelling/inflammation Re-Evaluation Ending Re-evaluation ending: Please do not hesitate to contact me at [phone] by phone or if you have questions or concerns regarding this new plan of care! Sincerely, Myrna Hannon PT, Cert MDT
--- NOTE | 2024-09-18 11:38 | HP.PTDCSUM ---
Discharge Summary D/C summary: It has been my pleasure to treat GLORY RAMESH referred by Dr. Robin Gilman MD, with the diagnosis of S/P L THR 06/09/24 for a total of 22 visit(s). Discharge Date: 09/18/24 Please see the following information for a summary of their discharge status. Subjective Subjective: PATIENT REPORTS SHE HASN'T BEEN HAVING ANY L HIP PAIN AND R HIP PAIN IS RANGING 0-2/10 NOW. ALSO REPORTS SHE FOUND OUT SHE HAS SILVER SNEAKERS. Pain L hip: Pain Intensity (Out of 10): 0 R hip: Pain Intensity (Out of 10): 0 L knee: Pain Intensity (Out of 10): 0 Overall Improvement % Improvement: 80 Objective Objective/Function: PATIENT WAS SEEN TODAY FOR RE-ASSESSMENT OF PROGRESS TOWARD THE SET PT GOALS AND THE NEED FOR FURTHER PHYSICAL THERAPY VS READINESS FOR DISCHARGE. ALL GOALS HAVE BEEN MET AND PATIENT IS APPROPRIATE FOR AND AGREEABLE TO DISCHARGE. UPON EXAM TODAY: GAIT: THIS PATIENT AMBULATES INDEP'LY INTO PT TODAY WITHOUT AD WITH GOOD CADANCE AND GOOD STRIDE LENGTH. VERY MILD LIMP ON R LE. NO LOB. SHE IS CARRYING A REALLY HEAVY PURSE WHICH SHE REPORTS IS NEW TOO HER AND NOW REALIZES IT IS REALLY TOO HEAVY AND PLANS TO CHANGE IT. STEPS: RECIP WITHOUT HR IN CLINIC BUT ONE HR SUGGESTED FOR SAFETY BY THIS PT. REPORTS SHE GOES ONE AT A TIME AT HOME IN/OUT OF HOUSE DUE TO THE STEEPNESS BUT GOING UP AND DOWN STEPS TO BASEMENT RECIP. INDEP TRANSFERS SIT TO STAND WITHOUT UE ASSIST. WOMAC score: 9/96 TU.32 SEC INDEP'LY WITHOUT AD. L knee flexion AROM: 130 degrees L hip flexion AROM: 84 degrees in standing. 116 deg PROM in lying. L hip abduction AROM: 50 degrees in standing. Left LE strength hip flexion 21.3 LBS, R 21.7 LBS, L abduction 23.6 LBS, R 29.0 LBS, knee flexion L 30.0 LBS, R 29.5 LBS. knee extension L 32.8 LBS, R 31.4 LBS. ankle DF B 5/5. Goals Goal 1:: DECREASE C/O L HIP PAIN WITH NORMAL ADL'S 0-2/10 Goal Progress: Goal Met Goal 2:: PATIENT WILL HAVE L HIP FUNCTIONAL ROM SYMMETRICAL WITH R HIP Goal Progress: Goal Met Goal 3:: PATIENT WILL HAVE L LE STRENGTH WITHING 80% OF R LE Goal Progress: Goal Met Goal 4:: PATIENT WILL COMPLETE TUG IN < 10 SECS WITHOUT AD TO DEMONSTRATE IMPROVED GAIT STABILITY Goal Progress: Goal Met Goal 5:: PATIENT WILL BE ABLE TO ASCEND AND DESCEND STEPS RECIPROCALLY WITH ONE HR WITHOUT LIMITATION Goal Progress: Goal Met Plan Plan: D/C. PATIENT AGREEABLE. D/C Information d/c sentence: If there are questions or concerns regarding this patient's physical therapy, please feel free to call me at [phone]. Thank you for the referral of this patient. Sincerely, Myrna Hannon, PT, Cert MDT Balance/Gait/Functional tests Balance/Special Test Scores WOMAC Total Score: 9 WOMAC Percentage: 90.6300 Improvement % Improvement: 80
== END 2024-09-18 19:00 | disposition home or self-care (01) ==
LOC: PT 10:30
PROVIDERS: PCP Family Medicine; Referring Provider Orthopaedic Surgery; Visit Provider Orthopaedic Surgery
DX: M16.12 Unilateral primary osteoarthritis, left hip (principal); Z96.642 Presence of left artificial hip joint
CPT/HCPCS: 97110; 97113; 97140; 97161; 97530